=== PATIENT | female | born 1980 | race Two or more races ===

== ENCOUNTER → 2024-11-07 | Outpatient (CLI) | payer MEDICAID, SELFPAY ==
--- NOTE | 2024-11-07 09:30 | XR_ITS ---
Examination: Breast ultrasound complete, bilateral Date and time of exam: November 07, 2024 1038 hours INDICATIONS: Outside mammogram September 05, 2024 focal asymmetries 12 mm 3:00 position right breast upper outer left breast Technique: Real-time grayscale ultrasonographic imaging bilateral breasts, including all 4 quadrants as well as nipple retroareolar and axillary regions. Findings: Sonographic images right breast Multiple benign cysts, the largest in the 3:00 position 4 x 6 mm No solid nodules Sonographic images left breast Multiple benign cysts, the largest in the 1:00 position 8 x 11 mm No solid nodules IMPRESSION: BI-RADS Category 2: Benign findings
--- NOTE | 2024-11-07 10:30 | XR_ITS ---
Examination: Diagnostic digital mammography, bilateral Computer aided detection 3-D breast Tomosynthesis, bilateral Date and time of exam: November 07, 2024 1104 hours INDICATIONS: Outside mammogram September 05, 2024 12 mm focal asymmetry 6:00 position right breast upper outer left breast Technique: Nonmagnified MLO, CC views of the breasts to been obtained, reconstructed from 3-D Tomosynthesis images. R2 computer aided detection program utilized for evaluation of suspicious masses and/or abnormal calcifications. 3-D Tomosynthesis images obtained. Findings: Scattered areas of fibroglandular density Spot compression films demonstrate no suspicious right breast masses Spot compression views left breast demonstrate 7 mm focal asymmetry upper left breast MLO view Ultrasound examination today demonstrates bilateral benign cysts Impression: BI-RADS Category 3: Probably benign findings One additional 6 month left mammogram follow-up is needed to document stability 7 mm focal asymmetry upper left breast MLO view.
== END | disposition home or self-care (01) ==
PROVIDERS: PCP Nurse Practitioner Family; Referring Provider Nurse Practitioner Family; Visit Provider Nurse Practitioner Family
DX: N64.89 Other specified disorders of breast (principal); N60.01 Solitary cyst of right breast; N60.02 Solitary cyst of left breast
CPT/HCPCS: 76641; 77062; 77066; G0279

== ENCOUNTER → 2025-05-10 | Outpatient (CLI) | payer MEDICAID, SELFPAY ==
--- NOTE | 2025-05-10 08:37 | XR_ITS ---
Examination: Diagnostic digital mammography, unilateral, left Computer aided detection 3-D breast Tomosynthesis, unilateral Date and time of exam: 05/10/2025, 9:06 a.m. Comparisons: 2024, October 2024 Indications: 6-month follow-up of probably benign asymmetry. Technique: Nonmagnified MLO, CC views of the left breast have been obtained, reconstructed from 3-D Tomosynthesis images. R2 computer aided detection program utilized for evaluation of suspicious masses and/or abnormal calcifications. 3-D Tomosynthesis images obtained. Technologist: Findings: There are scattered areas of fibroglandular density. No evidence of abnormal masses or suspicious calcifications.The previously described abnormality does not persist on spot compression views and represents superposition of normal fibroglandular tissue. Impression: BI-RADS category 1: Negative findings (within normal) Recommend 1 year follow-up mammogram
--- NOTE | 2025-05-10 09:00 | XR_ITS ---
Examination: Breast ultrasound, unilateral, left Date and time of exam: May 10, 2025, 0850 hours INDICATIONS: Mammogram November 07, 2024 7 mm focal asymmetry upper left breast Technique: Real-time ramsey scale ultrasonographic imaging performed left breast including all 4 quadrants as well as nipple retroareolar and axillary region. Findings: 3:00 cyst 5 x 4 mm 10:00 cyst 6 x 6 mm Smaller cyst. No solid nodules IMPRESSION: BI-RADS Category 2: Benign findings
== END | disposition home or self-care (01) ==
LOC: CDIM 08:30
PROVIDERS: PCP Family Medicine; Referring Provider Nurse Practitioner Family; Visit Provider Nurse Practitioner Family
DX: R92.312 Mammographic fatty tissue density, left breast (principal)
CPT/HCPCS: 76641; 77061; 77065; G0279